=== PATIENT | male | born 1965 | race Two or more races ===

== ENCOUNTER 2017-02-12 11:50 | Emergency (ER) | payer BC ==
[~2017-02-12] VITALS: Ht 175.3 cm; Wt 106.6 kg
[2017-02-12 12:23] VITALS: BP 121/86
[2017-02-12] MEDS ORDERED: KETOROLAC TROMETHAMINE INJ 60 MG/2 ML VIAL IM ONE ×2 (12:30→12:39)
--- NOTE | 2017-02-12 12:38 | NUR ---
PT TO RADIOLOGY FOR LUMBAR SPINE XRAY.
== END 2017-02-12 13:27 | disposition home or self-care (01) ==
LOC: ER 11:54
DX: M54.5 Low back pain (principal)
CPT/HCPCS: 72110-TC; A4606; J1885; Z7610